=== PATIENT | female | born 1975 | race Hispanic/Latino ===

== ENCOUNTER 2018-05-25 09:02 | Outpatient (CLI) | payer OTHER ==
--- NOTE | 2018-05-25 09:47 | RAD ---
LEFT FOOT THREE VIEWS: History: Left foot pain. Comparison: 09-02-10 FINDINGS: Lisfranc joint alignment is anatomic. Plantar arch maintained. Mild scattered osteophytosis. No acute fracture, dislocation, aggressive osseous erosions, or soft tissue calcifications are apparent. IMPRESSION: No acute osseous abnormalities are demonstrated. POS: KELVIN
== END 2018-05-25 09:03 | disposition home or self-care (01) ==
LOC: SCSRAD 09:02
PROVIDERS: ATTEND Internal Medicine Rheumatology
DX: M79.672 Pain in left foot (principal)

== ENCOUNTER 2018-10-19 09:00 | Outpatient (CLI) | payer OTHER ==
--- NOTE | 2018-10-19 09:43 | MMO ---
BILATERAL MAMMOGRAMS: DATE: 10/19/18 HISTORY: Screening mammography. FINDINGS: Baseline study. Heterogeneously dense fibroglandular tissue and benign-appearing calcifications. No dominant mass or suspicious calcifications. The study was evaluated with the assistance of computer-aided detection. IMPRESSION: BIRADS 1: Negative Suggest routine follow-up. POS: KELVIN
== END 2018-10-19 09:01 | disposition home or self-care (01) ==
LOC: SCSMAMMO 09:00
PROVIDERS: ATTEND Internal Medicine
DX: Z12.31 Encounter for screening mammogram for malignant neoplasm of breast (principal)
CPT/HCPCS: 77067

== ENCOUNTER 2022-05-28 08:11 | Outpatient (CLI) | payer OTHER | END 2022-05-28 08:12 | disposition home or self-care (01) | LOC: BICULT 08:11 | PROVIDERS: ATTEND Internal Medicine | DX: R92.8 Other abnormal and inconclusive findings on diagnostic imaging of breast (principal) | CPT/HCPCS: G0279 ==

== ENCOUNTER → 2022-06-02 | Day surgery (SDC) | payer OTHER | END | disposition home or self-care (01) | LOC: BICULT 12:40 | PROVIDERS: ATTEND Internal Medicine | PROC: 0H9T3ZX Drainage of Right Breast, Percutaneous Approach, Diagnostic (ICD-10-PCS; principal; 2022-06-02) | DX: C50.811 Malignant neoplasm of overlapping sites of right female breast (principal); Z17.0 Estrogen receptor positive status [ER+]; Z88.0 Allergy status to penicillin | CPT/HCPCS: 19083; 88305; 88341; 88342 ==

== ENCOUNTER 2023-01-01 13:57 | Outpatient (CLI) | payer OTHER | END 2023-01-01 13:58 | disposition home or self-care (01) | LOC: BICULT 13:57 | PROVIDERS: ATTEND Internal Medicine | DX: E07.9 Disorder of thyroid, unspecified (principal); R59.9 Enlarged lymph nodes, unspecified | CPT/HCPCS: 76536 ==

== ENCOUNTER 2023-07-29 13:13 | Outpatient (CLI) | payer OTHER | END 2023-07-29 13:14 | disposition home or self-care (01) | LOC: BICMAMMO 13:13 | PROVIDERS: ATTEND Radiology Radiation Oncology | DX: Z08 Encounter for follow-up examination after completed treatment for malignant neoplasm (principal); Z85.3 Personal history of malignant neoplasm of breast | CPT/HCPCS: 77066; G0279 ==

== ENCOUNTER 2024-08-01 08:49 | Outpatient (CLI) | payer OTHER | END 2024-08-01 08:50 | disposition home or self-care (01) | LOC: BICMAMMO 08:49 | PROVIDERS: ATTEND Radiology Radiation Oncology | DX: Z08 Encounter for follow-up examination after completed treatment for malignant neoplasm (principal); Z80.3 Family history of malignant neoplasm of breast | CPT/HCPCS: 77066; G0279 ==

== ENCOUNTER 2025-05-24 12:05 | Outpatient (CLI) | payer OTHER | END 2025-05-24 12:06 | disposition home or self-care (01) | LOC: SCSRAD 12:05 | PROVIDERS: ATTEND Podiatrist | DX: S90.32XA Contusion of left foot, initial encounter (principal) ==